=== PATIENT | male | born 1960 | race Caucasian/White ===

== ENCOUNTER 2017-04-19 15:17 | Day surgery (SDC) | payer OTHER ==
[2017-04-19] MEDS ORDERED: LIDOCAINE 1% 2 ML INJ ONE (15:48)
[2017-04-19] MEDS ORDERED: LR 1,000 ML IV ONE (15:59)
[2017-04-19] MEDS ORDERED: LIDOCAINE 1% 2 ML INJ ID PRN (15:59)
[2017-04-19] MEDS ORDERED: OXYMETAZOLINE 30 ML NASAL SPRAY ONE (16:45)
[2017-04-19] MEDS ORDERED: MIDAZOLAM 2 MG/2 ML VIAL ONE ×2 (16:47→17:19)
[2017-04-19] MEDS ORDERED: PROPOFOL/EMULSION 500 MG/50 ML BOTTLE IV ONE (16:47)
[2017-04-19] MEDS ORDERED: fentaNYL 100 MCG/2 ML INJ ONE (16:47)
[2017-04-19] MEDS ORDERED: METHYLENE BLUE 0.5% 50 MG/10 ML AMP ONE (16:57)
[2017-04-19] MEDS ORDERED: SUCCINYLCHOLINE CHLORIDE*ANESTHESIA ONLY*200 MG/10 ML SYR IVP ONE (17:16)
[2017-04-19] MEDS ORDERED: RANITIDINE 50 MG/2 ML VIAL ONE (17:16)
[2017-04-19] MEDS ORDERED: METOCLOPRAMIDE 10 MG/2 ML VIAL ONE (17:16)
[2017-04-19] MEDS ORDERED: SUGAMMADEX SODIUM 200 MG/2 ML VIAL IVP ONE (17:16)
[2017-04-19] MEDS ORDERED: DEXAMETHASONE 4 MG/ML VIAL ONE (17:16)
[2017-04-19] MEDS ORDERED: ROCURONIUM 50 MG/5 ML VIAL ONE (17:16)
[2017-04-19] MEDS ORDERED: LIDOCAINE 2% 5 ML SDV ONE (17:16)
[2017-04-19] MEDS ORDERED: ONDANSETRON 4 MG/2 ML VIAL ONE (17:16)
[2017-04-19] MEDS ORDERED: PHENYLEPHRINE HCL 100 MCG/ML SYR ONE (17:17)
[2017-04-19] MEDS ORDERED: MEPERIDINE 25 MG/ML SYR IVP PRN (17:24)
[2017-04-19] MEDS ORDERED: NALOXONE HCL 0.4 MG/ML INJ IVP PRN (17:24)
[2017-04-19] MEDS ORDERED: PROMETHAZINE HCL 25 MG/ML INJ IVP PRN (17:24)
[2017-04-19] MEDS ORDERED: LR 500 ML IV PRN (17:24)
[2017-04-19] MEDS ORDERED: DEXAMETHASONE 4 MG/ML VIAL IVP PRN (17:24)
[2017-04-19] MEDS ORDERED: fentaNYL 100 MCG/2 ML INJ IVP PRN (17:24)
[2017-04-19] MEDS ORDERED: ALBUTEROL 3 ML DEYVIAL IH PRN (17:24)
[2017-04-19] MEDS ORDERED: ONDANSETRON 4 MG/2 ML VIAL IVP PRN (17:24)
--- NOTE | 2017-04-19 17:24 | PDANEPAE ---
ANE Past Medical History - Cardiovascular History Hx Hypertension: No Hx Arrhythmias: Yes Hx Chest Pain: No Hx Coronary Artery / Peripheral Vascular Disease: No Hx CHF / Valvular Disease: No Hx Palpitations: No Cardiovascular History Comment: [employer] - ONE EPISODE IN PAST - NONE SINCE - 2 YRS AGO - Pulmonary History Hx COPD: No Hx Asthma/Reactive Airway Disease: No Hx Recent Upper Respiratory Infection: No Hx Oxygen in Use at Home: No Hx Sleep Apnea: No Sleep Apnea Screening Result - Last Documented: Negative - Neurologic History Hx Cerebrovascular Accident: No Hx Seizures: No Hx Dementia: No - Endocrine History Hx Diabetes: No Endocrine History Comment: SYNTHROID - Renal History Hx Renal Disorders: No - Liver History Hx Hepatic Disorders: No - Neurological & Psychiatric Hx Hx Neurological and Psychiatric Disorders: No - Cancer History Hx Cancer: Yes Cancer History Comment: DYSPLASIA COLON - Congenital Disorder History Hx Congenital Disorders: No - GI History Hx Gastrointestinal Disorders: No Gastrointestinal History Comment: HX COLON RESECTION - Other Health History Other Health History: NEG - Surgical History Prior Surgeries: SCROTAPLASTY. COLON RESECTION. COLONOSCOPIES. THYROIDECTOMY - HASHIMOTOS ANE Review of Systems Review of Systems: - Exercise capacity METS (RN): 4 METS ANE Patient History - Allergies Allergies/Adverse Reactions: No Known Allergies Allergy (Unverified 04/14/17 15:32) - Home Medications Home Medications: Aspirin 04/14/17 [Last Taken 04/18/17] Bystolic 04/14/17 [Last Taken 04/18/17] Magnesium 04/14/17 [Last Taken 04/14/17] Synthroid 04/14/17 [Last Taken 04/19/17] - NPO status NPO Since - Liquids (Date): 04/19/17 NPO Since - Liquids (Time): 00:30 NPO Since - Solids (Date): 04/18/17 NPO Since - Solids (Time): 23:00 - Smoking Hx Smoking Status: Former smoker - Family Anes Hx Family Hx Anesthesia Complications: NEG ANE Labs/Vital Signs - Vital Signs Blood Pressure: 137/89 Heart Rate: 57 Respiratory Rate: 14 O2 Sat (%): 94 Height: 177.8 cm Weight: 88.451 kg ANE Physical Exam - Airway Neck exam: decreased ROM, increased neck circumference, short neck Mallampati Score: Class 3 Mouth exam: normal dental/mouth exam, small mouth opening, abnormal chin - Pulmonary Pulmonary: no respiratory distress, no rales or rhonchi, clear to auscultation - Cardiovascular Cardiovascular: regular rate and rhythym, no murmur, rub, or gallop, systolic murmur - ASA Status ASA Status: III ANE Anesthesia Plan Anesthesia Plan: general endotracheal anesthesia Specialized Airway: video laryngoscope
--- NOTE | 2017-04-19 19:13 | POSTANESTH ---
Post Anesthetic Evaluation Cardiovascular Status: Normal, Stable Respiratory Status: Normal, Stable Level of Consciousness/Mental Status: Can Participate in Eval Pain Control: Adequate, Prn Tx Ordered Nausea/Vomiting Control: Adequate, Prn Tx Ordered Complications Possibly Related to Anesthesia: None Noted
[2017-04-19 20:08] VITALS: BP 135/80; PULSE 75; RESP 14; TEMP 97.9; O2SAT 97
== END 2017-04-19 20:15 | disposition home or self-care (01) ==
LOC: FSGY 15:17
PROVIDERS: ATTEND Otolaryngology
PROC: 0CBV8ZZ Excision of Left Vocal Cord, Via Natural or Artificial Opening Endoscopic (ICD-10-PCS; principal; 2017-04-19 16:30)
PROC: 0CBT8ZZ Excision of Right Vocal Cord, Via Natural or Artificial Opening Endoscopic (ICD-10-PCS; principal; 2017-04-19 16:30)
DX: J38.3 Other diseases of vocal cords (principal); E89.0 Postprocedural hypothyroidism; Z87.891 Personal history of nicotine dependence; G47.33 Obstructive sleep apnea (adult) (pediatric); I10 Essential (primary) hypertension
CPT/HCPCS: J0171; J0330; J1100; J2250; J2370; J2405; J2704; J2765; J2780; J3010; Q9968